=== PATIENT | male | born 1975 | race Caucasian/White ===

== ENCOUNTER 2017-01-24 21:05 | Emergency (ER) | payer MEDICAID ==
[~2017-01-24] VITALS: Ht 180.3 cm; Wt 83.9 kg
[~2017-01-24 21:05] MED LIST: AUGMENTIN 875-1 EACH PO; CHLORDIAZEPOXID25 MG PO; ESCITALOPRAM10 M1 PO; ETODOLAC400 MG PO; FLEXERIL10 MG PO; KEFLEX500 M1 PO; LORTAB 5/500 501 TAB PO; LORTAB 500 MG-71 TAB PO; NAPROSYN500 M1 PO; NOMEDS *; NOMEDS XX; ORUDIS75 MG PO; PHENERGAN 25MG.25 M1 PO; TAMIFLU 75MG CA75 MG PO; ZANTAC 150150 MG PO
[2017-01-24] MEDS ORDERED: KEFLEX 500MG.500 MG PO (21:57)
--- NOTE | 2017-01-24 22:02 | Emergency Room Report ---
History of Present Illness Time Seen by [id number] Presenting Problem in Triage Pt arrived:Walked Presenting Problem:PT STATES SOMETHING FLEW IN HIS EYE AT WORK A FEW DAYS AND WOKE UP TODAY WITH IT SWOLLEN AND RED. 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 N Clinical Suspician of Infection? N Mental Status: 1 - Regular (Normal Baseline) Sepsis Risk:Possible Sepsis Risk Have you (or family members/close friends) recently traveled outside the [place]? N If Yes, where/when: Have you had exposure to infectious disease within the past month? N TB? Other? Specify: Source patient, RN notes reviewed, family, old records Exam Limitations no limitations Comment fb in lt eye last week and now with drainage and reddness with no gross photophobia Cardiac Chest Pain Chest pain indicative of cardiac No Timing/Duration this evening Severity moderate ALLERGIES Coded Allergies: tetanus toxoid, adsorbed (S-ANAPHYLAXIS 01/26/16) Home Medications Reported Medications No Home Medications (NO HOME MEDICATIONS) 1 EACH XX ONCE History Medical History General CAD? No Angina: No CT: No Hypertension? No Hyperlipidemia? No CHF? No DVT? No PE? No COPD? No Asthma? Yes Anemia? No GERD? No Gastric ulcers? No GI Bleed? No Hernia? No Thyroid Problems? No Hypothyroidism? No CVA? No Seizures? No Diabetes? No Renal Insuffiency? No End Stage Renal Disease? No UTI? No Stones? No BPH? No GB Disease: No Nephritic Syndrome? No Asplenia? No Hepatitis? No Sickle Cell Disease? No Arthritis? No Migraines? No Cataracts? No Glaucoma? No MRSA? No HIV? No TB? No Anxiety? No Depression? No Cancer? No Immunization Hx DT/Tetanus REFUSES Flu [id number] Pneumonia NEVER Surgical Hx Previous Surgery?Y ORAL SURGERY Family History Family Hx Diabetes Yes CAD Yes Hypertension Yes Hyperlipidemia No Cancer No TB No Social History Smoking Hx Smoker: Current Every Day Smoker Tobacco: Yes Type Cigarettes Packs/day < 1 Pack Are you/the child exposed to second-hand smoke: Yes Alcohol Alcohol: No Drugs none Review of Systems All Other Systems Reviewed and Negative Constitutional denies fever Eyes see HPI, blurred vision, foreign body sensation, denies photophobia, denies contact lenses, denies glasses ENT denies: ear pain, epistaxis, throat pain. Respiratory denies cough, denies shortness of breath, denies wheezing Cardiovascular denies chest pain, denies syncope Gastrointestinal denies abdominal pain, denies diarrhea, denies vomiting Genitourinary denies: dysuria, frequency, hesitancy, hematuria. Musculoskeletal denies back pain, denies joint pain, denies joint swelling, denies neck pain Skin denies rash Psychiatric/Neurological denies headache, denies seizure Physical Exam Vital Signs Vital Signs Date Time Temp Pulse Resp B/P Pulse O2 O2 Flow FiO2 Ox Delivery Rate 01/24 2110 98.2 108 20 142/87 93 - WBC >12,000 or <4,000 or 10% bands? 2 or more SIRS Criteria Met? B/P:142/87 MAP:105 Creatinine >2.0? UA output<0.5ml/kg/hr for 2 hrs? Platelet count >100,000? Lactate >2.0mmol/1? INR >1.2 or PTT > than 60 sec? Evidence of Organ Dysfunction? Provider documented clinical suspician of infection? N Sepsis Criteria Count: 2 Sepsis Risk: Possible Sepsis Risk General Appearance no apparent distress Eye Exam - bilateral eye PERRL, bilateral eye EOMI Ear, Nose, Throat normal ENT inspection Neck supple Respiratory Status No: respiratory distress. 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 No Results/Orders Current Medication Orders Sig/Vi Start time Last Medication Dose Route Stop Time Status Admin Miscellaneous 0 .STK-MED ONE 01/24 2150 DC XX Procedures Eye Procedure Eye Procedure Risks/benefits discussed with pt/guardian? Yes Tetracaine Drops Administered left eye Fluorescein Stick(s) Used left eye Slit lamp exam No Antibiotic Ointment/Drps Admin left eye Departure Departure Time of Disposition 2154 Disposition DC Home or Self Care(routine) Clinical Impression Primary Impression: Conjunctivitis Qualifiers: Conjunctivitis type: acute Acute conjunctivitis type: bacterial Laterality: left Qualified Code: H10.32 - Unspecified acute conjunctivitis, left eye Condition STABLE Referrals [facility] Patient Instructions DI for Conjunctivitis Additional Instructions use meds and see dr sung in am Discharge Counseling Counseled pt/family regarding diagnosis, follow up needs Prescriptions Current Visit Scripts CEPHALEXIN (Keflex 500MG Capsule) 500 MG PO Q8H #21 CAP ED Critical Care Critical Care No at 2202
--- NOTE | 2017-01-24 22:02 | Emergency Room Report ---
History of Present Illness Time Seen by [id number] Presenting Problem in Triage Pt arrived:Walked Presenting Problem:PT STATES SOMETHING FLEW IN HIS EYE AT WORK A FEW DAYS AND WOKE UP TODAY WITH IT SWOLLEN AND RED. 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 N Clinical Suspician of Infection? N Mental Status: 1 - Regular (Normal Baseline) Sepsis Risk:Possible Sepsis Risk Have you (or family members/close friends) recently traveled outside the [place]? N If Yes, where/when: Have you had exposure to infectious disease within the past month? N TB? Other? Specify: Source patient, RN notes reviewed, family, old records Exam Limitations no limitations Comment fb in lt eye last week and now with drainage and reddness with no gross photophobia Cardiac Chest Pain Chest pain indicative of cardiac No Timing/Duration this evening Severity moderate ALLERGIES Coded Allergies: tetanus toxoid, adsorbed (S-ANAPHYLAXIS 01/26/16) Home Medications Reported Medications No Home Medications (NO HOME MEDICATIONS) 1 EACH XX ONCE History Medical History General CAD? No Angina: No [place]: No Hypertension? No Hyperlipidemia? No CHF? No DVT? No PE? No COPD? No Asthma? Yes Anemia? No GERD? No Gastric ulcers? No GI Bleed? No Hernia? No Thyroid Problems? No Hypothyroidism? No CVA? No Seizures? No Diabetes? No Renal Insuffiency? No End Stage Renal Disease? No UTI? No Stones? No BPH? No GB Disease: No Nephritic Syndrome? No Asplenia? No Hepatitis? No Sickle Cell Disease? No Arthritis? No Migraines? No Cataracts? No Glaucoma? No MRSA? No HIV? No TB? No Anxiety? No Depression? No Cancer? No Immunization Hx DT/Tetanus REFUSES Flu [id number] Pneumonia NEVER Surgical Hx Previous Surgery?Y ORAL SURGERY Family History Family Hx Diabetes Yes CAD Yes Hypertension Yes Hyperlipidemia No Cancer No TB No Social History Smoking Hx Smoker: Current Every Day Smoker Tobacco: Yes Type Cigarettes Packs/day < 1 Pack Are you/the child exposed to second-hand smoke: Yes Alcohol Alcohol: No Drugs none Review of Systems All Other Systems Reviewed and Negative Constitutional denies fever Eyes see HPI, blurred vision, foreign body sensation, denies photophobia, denies contact lenses, denies glasses ENT denies: ear pain, epistaxis, throat pain. Respiratory denies cough, denies shortness of breath, denies wheezing Cardiovascular denies chest pain, denies syncope Gastrointestinal denies abdominal pain, denies diarrhea, denies vomiting Genitourinary denies: dysuria, frequency, hesitancy, hematuria. Musculoskeletal denies back pain, denies joint pain, denies joint swelling, denies neck pain Skin denies rash Psychiatric/Neurological denies headache, denies seizure Physical Exam Vital Signs Vital Signs Date Time Temp Pulse Resp B/P Pulse O2 O2 Flow FiO2 Ox Delivery Rate 01/24 2110 98.2 108 20 142/87 93 - WBC >12,000 or <4,000 or 10% bands? 2 or more SIRS Criteria Met? B/P:142/87 MAP:105 Creatinine >2.0? UA output<0.5ml/kg/hr for 2 hrs? Platelet count >100,000? Lactate >2.0mmol/1? INR >1.2 or PTT > than 60 sec? Evidence of Organ Dysfunction? Provider documented clinical suspician of infection? N Sepsis Criteria Count: 2 Sepsis Risk: Possible Sepsis Risk General Appearance no apparent distress Eye Exam - bilateral eye PERRL, bilateral eye EOMI Ear, Nose, Throat normal ENT inspection Neck supple Respiratory Status No: respiratory distress. 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 No Results/Orders Current Medication Orders Sig/Vi Start time Last Medication Dose Route Stop Time Status Admin Miscellaneous 0 .STK-MED ONE 01/24 2150 DC XX Procedures Eye Procedure Eye Procedure Risks/benefits discussed with pt/guardian? Yes Tetracaine Drops Administered left eye Fluorescein Stick(s) Used left eye Slit lamp exam No Antibiotic Ointment/Drps Admin left eye Departure Departure Time of Disposition 2154 Disposition DC Home or Self Care(routine) Clinical Impression Primary Impression: Conjunctivitis Qualifiers: Conjunctivitis type: acute Acute conjunctivitis type: bacterial Laterality: left Qualified Code: H10.32 - Unspecified acute conjunctivitis, left eye Condition STABLE Referrals [facility] Patient Instructions DI for Conjunctivitis Additional Instructions use meds and see dr sung in am Discharge Counseling Counseled pt/family regarding diagnosis, follow up needs Prescriptions Current Visit Scripts CEPHALEXIN (Keflex 500MG Capsule) 500 MG PO Q8H #21 CAP ED Critical Care Critical Care No at 2202
[2017-01-24 22:11] VITALS: BP 142/87
--- OUTSIDE RECORDS SUMMARY | 2017-01-24 22:16 | External Medical Summary Rpt ---
Author Author , RYAN DAVIS Address Unknown Phone [email or web address] Care Team Providers Care Circuits Engineer Name Role Phone [employer] Unavailable Unavailable INC, [employer] Unavailable Unavailable INC, [employer] BEINEKE LATASHA, BEINEKE Unavailable Unavailable LATASHA JEFF GABBY, Unavailable Unavailable JEFF GABBY JEFF GABBY, Unavailable Unavailable JEFF GABBY [id number], Unavailable Unavailable [id number] KAR PRESLEY, Unavailable Unavailable [facility] Unavailable Unavailable [facility] WESTLEY, VIRGINIE Unavailable Unavailable [facility] [facility] Unavailable Unavailable INC, [facility], Unavailable Unavailable [facility] HOSTA JERMAINE, HOSTA JERMAINE Unavailable Unavailable [facility] Fifi Dumont MD, Unavailable Unavailable Fifi LEE JR DWI, ROSA Unavailable Unavailable JR DWI [facility] Unavailable Unavailable SERVICES, [facility], Unavailable Unavailable PLL[facility], [facility] PETTEY JAM, PETTEY Unavailable Unavailable JAM PETTEY JAM, PETTEY Unavailable Unavailable [facility] Unavailable Unavailable OF NOT, [facility] RENUSCH AILEEN, RENUSCH Unavailable Unavailable AILEEN DUONG THO, Unavailable Unavailable DUONG THO FLORINDA NEDRA, FLORINDA Unavailable Unavailable NEDRA SCHACK BURTON, SCHACK Unavailable Unavailable BURTON SOTINGEARUBY LATASHA, Unavailable Unavailable SOTINGEARUBY [facility] Unavailable Unavailable WOMEN'S STUDIES LECTURER ST, [facility] WOMEN'S STUDIES LECTURER ST [facility] Unavailable Unavailable [facility], [facility] ANDREW PRESLEY, ANDREW Unavailable Unavailable SAKINA ROULA III NEDRA, Unavailable Unavailable WEHRMAN III NEDRA MIRANDA, JANAE MIRANDA Unavailable Unavailable JANAE COLÓN Unavailable Unavailable Purpose Continuity of Care Document - 04-29-2009 through 2016 Problems Code Diagnosis DOS Provider Status [id number] CHONDROMALA 01-28-2016 [facility] EMILY [facility] [place] GROUP RIGHT KNEE [id number] PAIN IN 01-28-2016 [facility] RIGHT KNEE PHYSICIANS GROUP [id number] SPRAIN 01-26-2016 ADVANCED UNSPECIFIED TECHNOLOGIE SITE RT S INC KNEE INITIAL ENCNTR K027 DENTAL ROOT 10-27-2015 [facility], [facility] K029 DENTAL 10-27-2015 [facility] UNSPECIFIED INC Z720 TOBACCO USE 10-27-2015 [facility] INC 5206 DISTURBANCE 02-11-2015 [facility] S IN TOOTH [facility] ERUPTION INC 76544 LOSS OF 02-11-2015 [facility] TEETH DUE PHYSICIANS, TO TRAUMA [facility] 15849 OPEN WOUND 02-11-2015 NEO GUM WITHOUT PHYSICIANS, MENTION PLL COMPLICATIO N 920 CONTUSION 02-11-2015 [facility] SCALP AND INC NECK EXCEPT EYE 37904 INJURY OF 02-11-2015 NEO FACE AND PHYSICIANS, NECK OTHER PLLC AND UNSPECIFIED 7177 CHONDROMALA 12-05-2014 ST [facility] WOMEN'S STUDIES LECT[facility]ER [facility] [address]151 EFFUSION OF 12-05-2014 ST LOWER LEG [facility] WOMEN'S STUDIES [facility] [facility] [address] PAIN IN 12-05-2014 [facility] JOINT, ASSOCIATES LOWER LEG OF [facility] 9597 INJURY 12-05-2014 ST OTHER&UNSPE [facility]TE CIFIED KNEE MED CTR WOMEN'S STUDIES LECTURER LEG ST ANKLE&FOOT 9599 INJURY 12-05-2014 RAD[facility]Y OTHER AND ASSOCIATES UNSPECIFIED OF [facility] UNSPECIFIED SITE 88939 PAIN IN 11-24-2014 [place] [facility] ANKLE AND IM[facility]ING [facility] FOOT 87026 SWELLING OF 11-24-2014 [facility] 8449 SPRAIN&STRA 11-24-2014 NEO IN OF PHYSICIANS, UNSPECIFIED PLLC SITE OF KNEE&LEG 28019 UNSPECIFIED 08-25-2014 ADVANCED SITE OF TECHNOLOGIE ANKLE S INC SPRAIN AND STRAIN 276.8 276.8 01-29-2013 [facility] HYPOPOTASSE [facility] 305.00 305.00 01-29-2013 [facility] ALCOHOL [facility] C 305.1 305.1 01-29-2013 [facility] TOBACCO USE [facility] 5699 UNSPECIFIED 01-29-2013 JEFF DISORDER GABBY OF INTESTINE 574.20 574.20 01-29-2013 [facility] 35515 OTHER 01-29-2013 JEFF SPECIFIED GABBY DISORDERS OF BLADDER 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 LUTS 2768 HYPOPOTASSE 01-28-2013 JANAE MIRANDA KANDICE 5758 OTHER 01-28-2013 JANAE MIRANDA SPECIFIED DISORDER OF GALLBLADDER 43891 UNSPECIFIED 03-29-2012 [facility] PART OF [facility] CLOSED INC FRACTURE OF CLAVICLE 23516 CLOSED 03-29-2012 [facility] F[facility]URE OF MEDICAL SHAFT OF IMAGING ASS CLAVICLE V674 TREATMENT 03-29-2012 [facility] FRACTURE IMAGING ASS FOLLOW-UP EXAMINATION V5843 AFTERCARE 02-24-2012 [facility] FOLLOWING [facility] SURGERY INC INJURY AND TRAUMA 40926 SEROMA 02-16-2012 RUFUS HORTENSIA COMPLICATIN G A PROCEDURE NEC V672 CHEMOTHERAP 02-16-2012 [place] Y FOLLOW-UP MEDICAL IMAGING ASS EXAMINATION V5419 AFTERCARE 02-09-2012 [facility] TRAUMATIC IMAGING ASS FRACTURE OTHER BONE V5409 OTH 01-25-2012 [place] AFTERCARE MEDICAL INVOLVING IMAGING ASS INTERNAL FIXATION DEVICE 7933 NONSPECIFIC 01-14-2012 [place] ABN FINDNG MEDICAL RAD&OTH IMAGING ASS EXAM BILARY TRCT 8054 CLOS FX 01-14-2012 [place] LUMB [facility]ICAL VERTEBRA [facility] W/O MENTION SP CORD INJURY 56045 CLOSED 01-14-2012 [place] FRACTURE OF MEDICAL THREE RIBS [facility] 69535 OTHER 12-19-2011 [facility] PAIN SERVICES 49875 VOMITING 12-19-2011 [facility] ALONE [facility]ERG[facility] SERVICES 76173 CLOSED 12-19-2011 [facility] FRACTURE OF EMERGENCY RIB, SERVICES UNSPECIFIED 36861 CHEST PAIN 12-14-2011 RAD[facility]OLOGY UNSPECIFIED [facility] 80662 CLOSED 12-14-2011 EMERGENCY FRACTURE OF CARE PHYS ONE RIB [facility] 9110 TRUNK 12-14-2011 EMERGENCY ABRASION/FR CARE PHYS ICTION BURN [facility] WITHOUT MENTION INF 9160 HIP THI 12-14-2011 EMERGENCY LEG&ANK CARE PHYS ABRASION/FR [facility] ICION BURN W/O INF 64649 PAIN IN 12-13-2011 [place] [facility] PELVIC IMAGING ASS REGION AND THIGH 88822 DISPLCMT 12-13-2011 [facility] LUMBAR [facility]ICAL INTERVERT [facility] DISC W/O MYELOPATHY 7231 CERVICALGIA 12-13-2011 [facility] 7840 HEADACHE 12-13-2011 [facility] 18824 HEAD 12-13-2011 [place] INJURY, MEDICAL UNSPECIFIED IMAGING ASS 62788 CLOSED 01-17-2011 ST FRACTURE [facility] METACARPAL PHYSICIANS BONE SITE UNSPECIFIED Allergies, Adverse Reactions, Alerts Type Drug Allergy Adverse Reaction to Substance Substance Reaction Severity Tetanus Toxoid PARALYSIS Severe Medications Na ND Rx Da Fi Fi Am Da Di Ph RX Ph St me C No te ll ll ou ys ag ar # ys at rm s nt no ma ic us Or Da si cy ia de te s n re d IS 00 08 0 No OV 27 -2 UE 01 0- Lo -3 31 20 ng 70 65 13 er 2 76 Ac % ti IN ve FU S GABBY TT LE RA 63 08 0 No D- 80 -2 SA 70 0- Lo LI 10 20 ng NE 07 13 er 5A FL Ac US ti H ve 10 ML SY RI NG E RA 63 08 0 No D- 80 -2 SA 70 0- Lo LI 10 20 ng NE 07 13 er 5A FL Ac US ti H ve 10 ML SY RI NG E Sa 63 08 1 No li 80 -1 ne 70 9- Lo 10 20 ng Fl 07 13 er us 5 h Ac 10 ti ML ve Sy ri ng e Mo 00 08 0 No rp 40 -1 hi 91 9- Lo ne 25 20 ng 83 13 er 4M 0 G/ Ac Ml ti ve Sy ri ng e SO 00 08 0 No DI 40 -1 UM 97 9- Lo 98 20 ng CH 30 13 er LO 9 RI Ac DE ti ve 0. 9% SO JUSTYNA TI ON Sa 63 08 1 No li 80 -1 ne 70 9- Lo 10 20 ng Fl 07 13 er us 5 h Ac 10 ti ML ve Sy ri ng e ON 00 08 0 No DA 64 -1 NS 16 9- Lo ET 08 20 ng RO 02 13 er N 5 HC Ac L ti 4 ve MG /2 ML AL Mo 00 08 0 No rp 40 -1 hi 91 9- Lo ne 25 20 ng 83 13 er 4M 0 G/ Ac Ml ti ve Sy ri ng e KL 00 08 0 No OR 24 -1 -C 50 9- Lo ON 05 20 ng 80 13 er M2 1 0 Ac TA ti BL ve ET GA [address] 27 -1 RO 00 9- Lo GR 44 20 ng AF 53 13 er IN 5 Ac 66 ti -1 ve 0 SO JUSTYNA TI ON 00 08 08 0 15 3 CV 58 SC Ac 40 -0 -0 .0 S 04 ARENAS ti 60 8- 8- 00 PH 03 CK ve 36 20 20 AR 00 11 11 MA BR 5 CY IA # N 05 43 7 00 08 08 0 30 7 CV 58 WE Ac 40 -0 -0 .0 S 00 HR ti 60 4- 4- 00 PH 60 MA ve 35 20 20 AR N 70 11 11 MA II 5 CY I # WI LL 05 IA 43 M 7 E Vital Signs 01-29-2013 01:15 Name Value Interpretat Reference Comment ion Range BP 82 mm[Hg] Diastolic BP Systolic 135 mm[Hg] Heart 71 /min Rate/Pulse O2% 98 % Respiratory 16 /min Rate 01-28-2013 22:42 Name Value Interpretat Reference Comment ion Range BP 77 mm[Hg] Diastolic BP Systolic 131 mm[Hg] Heart 102 /min Rate/Pulse O2% 97 % Respiratory 18 /min Rate Results Labs Lab Lab Date Result Refere Interp Status Commen Order Detail nces retati t Range on COMPREHENSIVE METABOLIC PANEL (01-28-2013 21:45) Glucose 102 74-106 complet 013 mg/dL ed Bld-mCn 21:45 c BUN 7 mg/dL 7-18 complet Bld-mCn 013 ed c 21:45 Creat 1.1 0.8-1.3 complet SerPl-m 013 mg/dL ed Cnc 21:45 ESTIMAT 106 50-200 complet ED 013 ML/MIN ed CREATIN 21:45 INE CLEARAN CE GFR 75 Greater complet (ESTIMA 013 ML/MIN than ed RENA) 21:45 60 Sodium 142 136-145 complet SerPl-s 013 mmoL/L ed Cnc 21:45 Potassi 2.5 3.5-5.1 Low complet um 013 mmoL/L alert ed SerPl-s 21:45 Cnc Chlorid 99 98-107 complet e 013 mmoL/L ed SerPl-s 21:45 Cnc CO2 34 21.0-32 complet SerPl-s 013 mmoL/L .0 ed Cnc 21:45 Calcium 08-19-2 7.8 8.5-10. complet 013 mg/dL 1 ed SerPl-m 21:45 Cnc Prot 01-28-2 6.7 6.4-8.2 complet SerPl-m 013 gm/dL ed Cnc 21:45 Albumin 01-28-2 3.3 3.4-5.0 complet 013 gm/dL ed SerPl-m 21:45 Cnc Globuli 01-28-2 3.4 1.3-3.2 complet n 013 gm/dL ed Ser-mCn 21:45 c Albumin 1.0 UNK 1.1-1.8 complet /Glob 013 ed SerPl-m 21:45 Rto Bilirub 0.2 0.2-1.0 complet 013 mg/dL ed SerPl-m 21:45 Cnc AST 01-28- 24 U/L 15-37 complet SerPl-c 013 ed Cnc 21:45 ALT 01-28- 28 U/L 30-65 complet SerPl-c 013 ed Cnc 21:45 ALP 01-28- 104 U/L 50-136 complet SerPl-c 013 ed Cnc 21:45 LIPASE (01-28-2013 21:45) LIPASE 122 U/L 73-393 complet 013 ed 21:45 CBC with AUTO DIFF (01-28-2013 21:45) WBC # 01-28-2 9.1 4.8-10. complet Bld 013 K/MM3 8 ed Auto 21:45 RBC # 01-28-2 4.30 4.6-6.2 complet Bld 013 M/mm3 ed Auto 21:45 Hgb 01-28-2 13.9 14.1-18 complet Bld-mCn 013 g/dL .0 ed c 21:45 Hct Fr 40.0 % 42.0-52 complet Bld 013 .0 ed 21:45 MCV RBC 01-28- 93.1 fl 82.2-97 complet 013 .8 ed 21:45 MCH RBC 32.4 pg 27-31.2 complet Qn 013 ed Auto 21:45 MEAN 34.8 31.8-35 complet CORPUSC 013 g/dl .4 ed ULAR 21:45 HGB CONC RDW RBC 08-19-2 14.2 % 11.5-17 complet Auto 013 .5 ed 21:45 Platele 08-19-2 266 142-424 complet t Bld 013 K/mm3 ed Ql 21:45 Manual MEAN 19-2 6.9 fl 7.4-10. complet PLATELE 013 4 ed T 21:45 VOLUME Granulo -19-2 39.1 % 37.0-80 complet cytes 013 .0 ed Fr Bld 21:45 Auto LYMPH % -19-2 46.6 % 10-50 complet 013 ed 21:45 Monocyt 08-19-2 4.6 % 1.7-9.3 complet es Fr 013 ed Bld 21:45 Auto Eosinop -19-2 9.3 % 0.1-12. complet hil Fr 013 0 ed Bld 21:45 Auto Basophi 19-2 0.5 % 0.1-2.0 complet ls Fr 013 ed Bld 21:45 Auto Granulo -19-2 3.5 1.3-8.0 complet cytes # 013 K/mm3 ed Bld 21:45 Auto Lymphoc -19-2 4.2 0.7-4.5 complet ytes Fr 013 K/mm3 ed Bld 21:45 Auto Monocyt 08-19-2 0.4 0.1-1.0 complet es # 013 K/mm3 ed Bld 21:45 Auto Eosinop -19-2 0.8 0.0-0.4 complet hil # 013 K/mm3 ed Bld 21:45 Auto Basophi 08-19-2 0.0 0-0.2 complet ls # 013 K/MM3 ed Bld 21:45 Auto Procedures Procedure DOS Code Location Performer Comment KNEE L1830 [facility]ED HOSTA JERMAINE ORTHOSIS 6 TECHNOLOG IMMOBLIZE IES INC R CANVAS LONGTUDNL PREFAB THERAPEUT 91979 [facility] IC 6 [facility] PROPHYLAC INC INC TIC/DX INJECTION SUBQ/IM INJECTION J2405 [facility] 6 [facility] ONDANSETR INC INC ON HCL PER 1 MG UNCLASSIF J3490 [facility] IED DRUGS 6 [facility] INC [place] [address] JT LOWER 5 [facility]TE [facility] EXTREM MED CTR MED CTR W/O WOMEN'S STUDIES LECTURER ST WOMEN'S STUDIES LECTURER ST CONTRAST MATRL RADIOLOGI 58509 YUKO JEFF C 5 MEDICAL GABBY EXAMINATI IMAGING ON KNEE 3 ASS VIEWS RADEX 74883 YUKO JEFF ANKLE 5 MEDICAL GABBY COMPLETE IMAGING MINIMUM 3 ASS VIEWS RADEX 12604 YUKO BEINEKE ANKLE 5 MEDICAL LATASHA COMPLETE IMAGING MINIMUM 3 ASS VIEWS CRTCHS E0114 ADVANCED ADVANCED UNDARM 5 TECHNOLOG TECHNOLOG OT THAN IES INC IES INC WOOD PAIR PAD TIP&[place] [address] JEFF JEFF ABDOMEN & 3 GABBY GAB[place] [address] JANAE MIRANDA ABDOMINAL 3 REAL TIME W/IMAGE LIMITED ECHO 06975 JANAE MIRANDA TRANSTHOR 3 C R-T 2D W/WO M-MODE REC F-UP/LMTD US CHEST 31999 JANAE MIRANDA REAL TIME 3 W/IMAGE DOCUMENTA TION RADEX 51122 A[facility] CLAVICLE 2 [facility] COMPLETE INC INC RADEX 71826 [facility] CLAVICLE 2 [facility] COMPLETE INC INC RADEX 66954 YUKO JEFF CLAVICLE 2 MEDICAL GABBY COMPLETE IMAGING ASS SMR PRIM 85711 [facility] SRC 2 [facility] GRAM/GIEM INC INC SA STAIN BCT FUNGI/MARI L I&D 57787 PETTEY PETTEY HEMATOMA 2 JAM JAM SEROMA/FL UID COLLECTIO N CUL BACT 10680 [facility] XCPT 2 [facility] URINE INC INC BLOOD/STO OL AEROBIC ISOL RADEX 58044 A[facility] CLAVICLE 2 [facility] COMPLETE INC INC RADEX 97341 A[facility] CLAVICLE 2 [place] [address] [facility] INFUSION 2 [facility] THERAPY/P INC INC ROPHYLAXI S /DX 1ST TO 1 HR FLUOROSCO 44843 YUKO AGUILAR PY SPX UP 2 MEDICAL GABBY TO 1 IMAGING HOUR ASS PHYS/QHP TIME FLUOROSCO 73475 ANA CRISTINA DE LA PAZ PY SPX >1 2 [facility] HOUR INC INC PHYS/[place] [address] PETTEMinh PETTEY CLAVICULA 2 JAM JAM R FRACTURE INTERNAL FIXATION RADIOLOGI 61829 YUKO AGUILAR C 2 MEDICAL GABBY EXAMINATI IMAGING ON CHEST ASS SINGLE VIEW FRONTAL THERAPEUT 98343 ANA CRISTINA ANA CRISTINA IC 2 [facility] INJECTION [place] [address] ANA CRISTINACECY DE LA PAZ INFUSION 2 [facility] THERAPY INC INC PROPHYLAX IS/DX EA HOUR ANESTHESI 44256 COMMUNITY ANDREW A 2 ANESTH SAKINA CLAVICLE OF THE AND BLUE SCAPULA NOS ANCHOR/SC C1713 ANA CRISTINA ANA CRISTINA REW 2 [facility] OPPOSING INC INC BN-TO-BN/ SOFT TISSUE-TO -BN RADEX 27199 ANA CRISTINA DE LA PAZ CLAVICLE 2 [facility] [place] [address] YUKO AGUILAR ABDOMEN & 2 MEDICAL GABBY PELVIS IMAGING W/O ASS CONTRAST MATERIAL ECG 45305 ANA CRISTINA DE LA PAZ ROUTINE 2 [facility] ECG INC INC W/LEAST 12 LDS TRCG ONLY W/O I&R ECG 33980 ROSA LEE JR ROUTINE 2 DWI DWI ECG W/LEAST 12 LDS I&R ONLY BLOOD 35891 ANA [facility]RISTINA DE [facility] PA[facility] COUNT 2 [facility] COMPLETE INC INC AUTO&AUTO DIFRNTL WBC BASIC 28071 ANA [facility] METABOLIC 2 [facility] PANEL INC INC CALCIUM TOTAL SHOULDER L3670 [facility]ANCED ADVANCED ORTHOSIS 2 TECHNOLOG TECHNOLOG ACROMIO/C IES INC IES INC LAVICULAR PREFAB RADEX 61266 RADIOLOGY DARDINGER CLAVICLE 2 SAKINA COMPLETE [facility]OCIATE S [facility] RADIOLOGI 76824 RADIOLOGY DARDINGER C EXAM 2 SAKINA CHEST 2 ASSOCIATE VIEWS S OF [facility] FRONTAL&L ATERAL CT LUMBAR 36285 YUKO AGUILAR SPINE 2 MEDICAL GABBY W/O IMAGING CONTRAST ASS MATERIAL RADIOLOGI 26748 YUKO AGUILAR C 2 MEDICAL GABBY EXAMINATI IMAGING ON PELVIS ASS 1/2 VIEWS RADEX 96163 YKUO HUNTLEY SHOULDER 2 MEDICAL MEDICAL COMPLETE IMAGING IMAGING MINIMUM 2 ASS ASS VIEWS RADEX 47374 YUKO AGUILAR RIBS 2 MEDICAL GABBY UNILATERA IMAGING [place] [address] [place] [address] [facility] AGUILAR CERVICAL 2 MEDICAL GABBY SPINE W/[place] [address] YUKO AGUILAR HEAD/BRAI 2 MEDICAL GABBY N W/O IMAGING CONTRAST ASS MATERIAL CLTX 13566 JOSH CELESTE METACARPA 1 EMERGENCY III NEDRA L FX W/O SERVICES MANIPULAT ION EACH BONE RADEX 47564 [facility] [place] AGUILAR HAND 1 MEDICAL GABBY MINIMUM 3 IMAGING VIEWS ASS Encounters Encounter Start End Date Code Location Performer Type Date OFFICE 14061 [facility] STACEYMinh OUTFIOR 6 6 PHYSICIAN HORTENSIA Fischer NEW 30 S GROUP MINUTES EMERGENCY 62699 NEO LOVELACE 6 6 PHYSICIAN AILEEN ANTHONY S, [facility] T VISIT MODERATE SEVERITY HOSPITAL ANA CRISTINA - 6 6 [facility] 71627 ANA CRISTINA 6 6 [facility] T VISIT MODERATE SEVERITY EMERGENCY 51073 NEO MACKAY 6 6 PHYSICIAN Faye ANTHONY S, [facility] T VISIT HIGH/URGE NT SEVERITY EMERGENCY 04777 NEO MACKAY 5 5 PHYSICIAN Faye ANTHONY S, [facility] T VISIT MODERATE SEVERITY EMERGENCY 33323 ANA CRISTINA 5 [address] [facility] T VISIT LOW/MODER SEVERITY HOSPITAL ANA CRISTINA - 5 5 [facility] OUTPATIEN INC [facility] - 5 5 [facility] OFF[facility] [address] [facility] OUTPATIEN 5 5 [facility] [place] T VISIT 15 PHYSICIAN MINUTES S EMERGENCY 58634 NEO RACHEL 5 5 PHYSICIAN WESTLEY DEPARTMEN S, [facility] T VISIT HIGH/URGE NT SEVERITY Emergency DENAE Dumont MD (ER) 3 21:56 3 01:30 [facility] EMERGENCY 14463 JANAE MIRANDA DEPT 3 3 VISIT HIGH SEVERITY& THREAT [facility] ANA CRISTINA - 2 2 [facility]IEN [facility] ANA CRISTINA [facility] 2 2 [facility] ANA CRISTINA [facility] 2 2 [facility]PATIEN [facility] ANA CRISTINA - 2 2 [facility] ANA CRISTINA - 2 2 [facility] ANA CRISTINA - 2 2 [facility] ANA CRISTINA - 2 2 [facility] OUTPATIEN [facility] OFFICE 68954 PETTEMinh PET[facility]Y [facility] 2 JAM JAM T NEW 30 MINUTES EMERGENCY 52445 JOSH NEELY DEPT 2 2 EMERGENCY NEDRA VISIT SERVICES HIGH SEVERITY& THREAT [facility] EMERGENCY 33178 EMERGENCY RICHARD 2 2 CARE N THO DEPARTMEN PHYS T VISIT [facility] HIGH/URGE NT SEVERITY OFFICE [address] [facility] OUTPATIEN 1 1 [facility] [place] T NEW 30 MINUTES PHYSICIAN HOSPITAL ANA CRISTINA - 1 1 [facility]PATIEN [facility] EMERGENCY 46433 ANA CRISTINA 1 1 [facility] T VISIT LOW/MODER SEVERITY EMERGENCY 81387 JOSH CELESTE 1 1 EMERGENCY III [facility] T VISIT HIGH/URGE NT [facility] ANA CRISTINA - 9 9 [facility]
--- OUTSIDE RECORDS SUMMARY | 2017-01-24 22:16 | External Medical Summary Rpt ---
Author Author , RYAN DAVIS Address Unknown Phone [email or web address] Care Team Providers Care Research Microbiologist Name Role Phone [employer] Unavailable Unavailable INC, [employer] Unavailable Unavailable INC, [employer] BEINEKE LATASHA, BEINEKE Unavailable Unavailable LAATSHA JEFF GABBY, Unavailable Unavailable JEFF GABBY JEFF GABBY, Unavailable Unavailable JEFF GABBY [id number], Unavailable Unavailable [id number] K[facility] PRES[facility], Unavailable Unavailable [facility] Unavailable Unavailable [facility] [place], VIRGINIE Unavailable Unavailable [place] [facility] Unavailable Unavailable INC, [facility], Unavailable Unavailable [facility] HOSTA JERMAINE, HOSTA JERMAINE Unavailable Unavailable [facility] Fifi Dumont MD, Unavailable Unavailable Fifi LEE JR DWI, ROSA Unavailable Unavailable JR DWI [facility] Unavailable Unavailable SERVICES, [facility] Unavailable [facility]available [facility], [facility] PETTEY JAM, PETTEY Unavailable Unavailable JAM PETTEY JAM, PETTEY Unavailable Unavailable [facility] Unavailable Unavailable OF NOT, [facility] RENUSCH AILEEN, RENUSCH Unavailable Unavailable AILEEN DUONG THO, Unavailable Unavailable DUONG THO FLORINDA NEDRA, FLORINDA Unavailable Unavailable NEDRA SCHACK BURTON, SCHACK Unavailable Unavailable BURTON SOTINGEARUBY LATASHA, Unavailable Unavailable SOTINGEARUBY [facility] Unavailable Unavailable PULL OVER MACHINE OPERATOR ST, [facility] PULL OVER MACHINE OPERATOR ST [facility] Unavailable Unavailable [facility]IC[facility], [facility] ANDREW PRESLEY, ANDREW Unavailable Unavailable SAKINA ROULA III NEDRA, Unavailable Unavailable WEHRMAN III NEDRA MIRANDA, JANAE MIRANDA Unavailable Unavailable JANAE COLÓN Unavailable Unavailable Purpose Continuity of Care Document - 04-29-2009 through 2016 Problems Code Diagnosis DOS Provider Status [id number] CHONDROMALA 01-28-2016 [facility] RIGHT KNEE [id number] PAIN IN 01-28-2016 [facility] RIGHT [facility] PH[facility]ICIANS GROUP [id number] SPRAIN 01-26-2016 [facility] UNSPECIFIED TECHNOLOGIE SITE RT S INC KNEE INITIAL ENCNTR K027 DENTAL ROOT 10-27-2015 [facility], [facility] K029 DENTAL 10-27-2015 [facility] UNSPECIFIED INC Z720 TOBACCO USE 10-27-2015 [facility] INC 5206 DISTURBANCE 02-11-2015 [facility] S IN [facility]OTH [facility] ERUPTION INC 93584 LOSS OF 02-11-2015 [facility] TEETH DUE PHYSICIANS, TO TRAUMA [facility] 46373 OPEN WOUND 02-11-2015 NEO GUM WITHOUT PHYSICIANS, MENTION PLL COMPLICATIO N 920 CONTUSION 02-11-2015 [facility]ACE [facility] SCALP AND INC NECK EXCEPT EYE 67039 INJURY OF 02-11-2015 NEO FACE AND PHYSICIANS, NECK OTHER PLLC AND UNSPECIFIED 7177 CHONDROMALA 12-05-2014 ST [facility] PULL OVER MACHINE [place]ATOR [facility] [address]274 EFFUSION OF 12-05-2014 ST [facility] PULL OVER MACHINE OPERATOR [facility] [address]249 PAIN IN 12-05-2014 [facility], [facility]OC[facility]ATES [facility]OWER [facility] 9597 INJURY 12-05-2014 ST OTHER&UNSPE [facility]TE CIFIED KNEE MED CTR PULL OVER MACHINE OPERATOR LEG ST ANKLE&FOOT 9599 INJURY 12-05-2014 RAD[facility] OTHER AND ASSOCIATES UNSPECIFIED OF [facility] UNSPECIFIED SITE 01051 PAIN IN 11-24-2014 [place] [facility], [facility] ANKLE AND IM[facility]ING ASS FOOT 45645 SWELLING OF 11-24-2014 [facility] 8449 SPRAIN&STRA 11-24-2014 NEO IN OF PHYSICIANS, UNSPECIFIED PLLC SITE OF KNEE&LEG 70124 UNSPECIFIED 08-25-2014 [facility] SITE OF TECHNOLOGIE ANKLE S INC SPRAIN AND STRAIN 276.8 276.8 01-29-2013 [place] HYPOPOTASSE [facility] 305.00 305.00 01-29-2013 [place] ALCOHOL [facility] C 305.1 305.1 01-29-2013 [place] TOBACCO USE [facility] 5699 UNSPECIFIED 01-29-2013 JEFF DISORDER GABBY OF INTESTINE 574.20 574.20 01-29-2013 Ana Cristina [facility] 48533 OTHER 01-29-2013 JEFF SPECIFIED GABBY DISORDERS OF BLADDER 12417 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 LUTS 2768 HYPOPOTASSE 01-28-2013 JANAE MIRANDA KANDICE 5758 OTHER 01-28-2013 JANAE MIRANDA SPECIFIED DISORDER OF GALLBLADDER 78197 UNSPECIFIED 03-29-2012 [facility] PART OF [facility] CLOSED INC FRACTURE OF CLAVICLE 79003 CLOSED 03-29-2012 [place] FRACTURE OF MEDICAL SHAFT OF IMAGING ASS CLAVICLE V674 TREATMENT 03-29-2012 [place] HEALED [facility]ICAL FRACTURE IMAGING ASS FOLLOW-UP EXAMINATION V5843 AFTERCARE 02-24-2012 [facility] FOLLOWING [facility]ERY INC INJURY AND TRAUMA 45402 SEROMA 02-16-2012 RUFUS HORTENSIA COMPLICATIN G A PROCEDURE NEC V672 CHEMOTHERAP 02-16-2012 [place] Y FOLLOW-UP MEDICAL IMAGING ASS EXAMINATION V5419 AFTERCARE 02-09-2012 [place] HEALING MEDICAL TRAUMATIC IMAGING ASS FRACTURE OTHER BONE V5409 OTH 01-25-2012 [place] AFTERCARE MEDICAL INVOLVING IMAGING ASS INTERNAL FIXATION DEVICE 7933 NONSPECIFIC 01-14-2012 [place] ABN FINDNG MEDICAL RAD&OTH IMAGING ASS EXAM BILARY TRCT 8054 CLOS FX 01-14-2012 [place] LUMB MEDICAL VERTEBRA IMAGING ASS W/O MENTION SP CORD INJURY 04979 CLOSED 01-14-2012 [place] FRACTURE OF MEDICAL THREE RIBS [facility] 60123 OTHER 12-19-2011 [facility] 93368 VOMITING 12-19-2011 [facility] 34216 CLOSED 12-19-2011 [place] FRACTURE OF EMERGENCY RIB, SERVICES UNSPECIFIED 29782 CHEST PAIN 12-14-2011 [facility] UNSPECIFIED [facility] 60432 CLOSED 12-14-2011 EMERGENCY FRACTURE OF CARE PHYS ONE RIB [facility] 9110 TRUNK 12-14-2011 EMERGENCY ABRASION/FR CARE PHYS ICTION BURN [facility] WITHOUT MENTION INF 9160 HIP THI 12-14-2011 EMERGENCY LEG&ANK CARE PHYS ABRASION/FR [facility] ICION BURN W/O INF 85762 PAIN IN 12-13-2011 [place] [facility]INT MEDICAL PELVIC IMAGING ASS REGION AND THIGH 03844 DISPLCMT 12-13-2011 [place] LUMBAR MEDICAL INTERVERT IMAGING ASS DISC W/O MYELOPATHY 7231 CERVICALGIA 12-13-2011 [facility] 7840 HEADACHE 12-13-2011 [facility] 96564 HEAD 12-13-2011 [place] INJURY, MEDICAL UNSPECIFIED IMAGING ASS 36315 CLOSED 01-17-2011 ST FRACTURE BETTE METACARPAL PHYSICIANS [...] IES INC R CANVAS LONGTUDNL PREFAB THERAPEUT 23536 [facility] IC 6 [facility] PROPHYLAC INC INC TIC/DX INJECTION SUBQ/IM INJECTION J2405 [facility] 6 [facility] ONDANSETR INC INC ON HCL PER 1 MG UNCLASSIF J3490 [facility] IED DRUGS 6 [facility] INC INC MRI ANY [address] JT LOWER 5 BETTE [facility]TE EXTREM MED CTR MED CTR W/O PULL OVER MACHINE OPERATOR ST PULL OVER MACHINE OPERATOR ST CONTRAST MATRL RADIOLOGI 75487 YUKO JEFF C 5 MEDICAL GABBY EXAMINATI IMAGING ON KNEE 3 ASS VIEWS RADEX 96583 YUKO JEFF ANKLE 5 MEDICAL GABBY COMPLETE IMAGING MINIMUM 3 ASS VIEWS RADEX 20992 YUKO BEINEKE ANKLE 5 MEDICAL LATASHA COMPLETE IMAGING MINIMUM 3 ASS VIEWS CRTCHS E0114 [facility]VANCED ADVANCED UNDARM 5 TECHNOLOG TECHNOLOG OT THAN IES INC IES INC WOOD PAIR PAD TIP&[place] [address] JEFF JEFF ABDOMEN & 3 GABBY GABBY PEL[place] [address] JANAE MIRANDA ABDOMINAL 3 REAL TIME W/IMAGE LIMITED ECHO 68538 JANAE MIRANDA TRANSTHOR 3 C R-T 2D W/WO M-MODE REC F-UP/LMTD US CHEST 03134 JANAE MIRANDA REAL TIME 3 W/IMAGE DOCUMENTA TION RADEX 77412 [facility] CLAVICLE 2 [facility] COMPLETE INC INC RADEX 93861 [facility] CLAVICLE 2 [facility] COMPLETE INC INC RADEX 40535 YUKO JEFF CLAVICLE 2 MEDICAL GABBY COMPLETE IMAGING ASS SMR PRIM 31632 [facility] SRC 2 [facility] GRAM/GIEM INC INC SA STAIN BCT FUNGI/MARI L I&D 34002 PETTEY PETTEY HEMATOMA 2 JAM JAM SEROMA/FL UID COLLECTIO N CUL BACT 00072 [facility] XCPT 2 [facility] URINE INC INC BLOOD/STO OL AEROBIC ISOL RADEX 25658 [facility] CLAVICLE 2 [facility] COMPLETE INC INC RADEX 80793 A[facility] CLAVICLE 2 [place] [address] A[facility] INFUSION 2 [facility] THERAPY/P INC INC ROPHYLAXI S /DX 1ST TO 1 HR FLUOROSCO 86466 YUKO AGUILAR PY SPX UP 2 MEDICAL GABBY TO 1 IMAGING HOUR ASS PHYS/QHP TIME FLUOROSCO 51794 ANA [facility]RISTINA DE LA PAZ PY SPX >1 2 [facility] HOUR [place] [address] PETTEMinh PETTEY CLAVICULA 2 JAM JAM R FRACTURE INTERNAL FIXATION RADIOLOGI 23935 YUKO AGUILAR C 2 MEDICAL GABBY EXAMINATI IMAGING ON CHEST ASS SINGLE VIEW FRONTAL THERAPEUT 57084 ANA CRISTINA ANA CRISTINA IC 2 [facility] INJECTION [place] [address] ANA CRISTINACECY DE LA PAZ INFUSION 2 [facility] THERAPY INC INC PROPHYLAX IS/DX EA HOUR ANESTHESI 78438 COMMUNITY ANDREW A 2 ANESTH SAKINA CLAVICLE OF THE AND BLUE SCAPULA NOS ANCHOR/SC C1713 ANA CRISTINA ANA CRISTINA REW 2 [facility] OPPOSING INC INC BN-TO-BN/ SOFT TISSUE-TO -BN RADEX 65173 ANA CRISTINA DE LA PAZ CLAVICLE 2 [facility] [place] [address] YUKO AGUILAR ABDOMEN & 2 MEDICAL GABBY PELVIS IMAGING W/O ASS CONTRAST MATERIAL ECG 16746 ANA CRISTINA DE LA PAZ ROUTINE 2 [facility] ECG INC INC W/LEAST 12 LDS TRCG ONLY W/O I&R ECG 68495 ROSA LEE JR ROUTINE 2 DWI DWI ECG W/LEAST 12 LDS I&R ONLY BLOOD 54682 ANA [facility]INA DE [facility] PA[facility] COUNT 2 [facility] COMPLETE INC INC AUTO&AUTO DIFRNTL WBC BASIC 50249 ANA [facility]RISTINA DE [facility] METABOLIC 2 [facility] PANEL INC INC CALCIUM TOTAL SHOULDER L3670 [facility] OR[employer]OSIS 2 TECHNOLOG TECHNOLOG ACROMIO/C IES INC IES INC LAVICULAR PREFAB RADEX 07140 RADIOLOGY DARDINGER CLAVICLE 2 SAKINA COMPLETE [facility] RADIOLOGI 02089 RADIOLOGY DARDINGER C EXAM 2 SAKINA CHEST 2 ASSOCIATE VIEWS S OF [facility] FRONTAL&L ATERAL CT LUMBAR 34755 YUKO AGUILAR SPINE 2 MEDICAL GABBY W/O IMAGING CONTRAST ASS MATERIAL RADIOLOGI 30743 YUKO AGUILAR C 2 MEDICAL GABBY EXAMINATI IMAGING ON PELVIS ASS 1/2 VIEWS RADEX 39214 YUKO HUNTLEY SHOULDER 2 MEDICAL MEDICAL COMPLETE IMAGING IMAGING MINIMUM 2 ASS ASS VIEWS RADEX 55362 YUKO AGUILAR RIBS 2 MEDICAL GABBY UNILATERA IMAGING [place] [address] [place] [address] [facility] AGUILAR CERVICAL 2 MEDICAL GABBY SPINE W/[place] [address] YUKO AGUILAR HEAD/BRAI 2 MEDICAL GABBY N W/O IMAGING CONTRAST ASS MATERIAL CLTX 93296 JOSH CELESTE METACARPA 1 EMERGENCY III NEDRA L FX W/O SERVICES MANIPULAT ION EACH BONE RADEX 42571 [facility] AGUILAR HAND 1 MEDICAL GABBY MINIMUM 3 IMAGING VIEWS ASS Encounters Encounter Start End Date Code Location Performer Type Date OFFICE 81178 [facility] STACEYMinh OUTFIOR 6 6 PHYSICIAN HORTENSIA Fischer NEW 30 S GROUP MINUTES EMERGENCY 37199 NEO LOVELACE 6 6 PHYSICIAN AILEEN ANTHONY S, [facility] T VISIT MODERATE SEVERITY HOSPITAL ANA CRISTINA - 6 6 [facility] 66904 ANA CRISTINA 6 6 [facility] T VISIT MODERATE SEVERITY EMERGENCY 72573 NEO MACKAY 6 6 PHYSICIAN Faye ANTHONY S, [facility] T VISIT HIGH/URGE NT SEVERITY EMERGENCY 32663 NEO MACKAY 5 5 PHYSICIAN Faye ANTHONY S, [facility] T VISIT MODERATE SEVERITY EMERGENCY 87653 ANA CRISTINA 5 5 [facility] T VISIT LOW/MODER SEVERITY HOSPITAL ANA CRISTINA - 5 5 [facility] OUTPATIEN INC [facility] - [facility] [facility] OUTPATIEN 5 5 [facility] [place] T VISIT 15 PHYSICIAN MINUTES S EMERGENCY 24877 NEO RACHEL 5 5 PHYSICIAN [place] DEPARTMEN S, [facility] T VISIT HIGH/URGE NT SEVERITY Emergency DENAE Dumont MD (ER) 3 21:56 3 01:30 [facility] EMERGENCY 36344 JANAE MIRANDA DEPT 3 3 VISIT HIGH SEVERITY& THREAT [facility] ANA CRISTINA - 2 2 [facility] ANA CRISTINA - 2 2 [facility] ANA CRISTINA - 2 2 [facility] ANA CRISTINA - 2 2 [facility] ANA CRISTINA - 2 2 [facility] ANA CRISTINA - 2 2 [facility] ANA CRISTINA - 2 2 [facility] OUTPATI[facility] OFFICE 21025 PETTEMinh PETTEY [facility] 2 2 JAM JAM T NEW 30 MINUTES EMERGENCY 85246 JOSH NEELY DEPT 2 2 EMERGENCY NEDRA VISIT SERVICES HIGH SEVERITY& THREAT [facility] 21641 EMERGENCY RICHARD 2 2 CARE N THO DEPARTMEN PHYS T VISIT [facility] HIGH/URGE NT SEVERITY OFFICE [address] [facility] OUT[facility]EN 1 1 [facility] [place] T NEW 30 MINUTES PHYSICIAN HOSPITAL ANA CRISTINA - 1 1 [facility] EMERGENCY 94861 [facility] 1 [facility] VISIT LOW/MODER SEVERITY EMERGENCY 49977 JOSH CELESTE 1 1 [facility]ERGENCY III [facility] VISIT HIGH/URGE NT [facility] ANA CRISTINA - 9 9 [facility]PAT[facility]EN [facility] T
--- OUTSIDE RECORDS SUMMARY | 2017-01-24 22:17 | External Medical Summary Rpt ---
Author Author , RYAN Organization RYAN Address Unknown Phone [email or web address] Team Providers Care Principal Web Developer Name Role Phone [employer] Unavailable Unavailable INC, [employer] Unavailable Unavailable INC, [employer] BEINEKE LATASHA, BEINEKE Unavailable Unavailable LATASHA JEFF GABBY, Unavailable Unavailable JEFF GABBY JEFF GABBY, Unavailable Unavailable JEFF GABBY [id number], Unavailable Unavailable [id number] KAR SAKINA, Unavailable Unavailable [facility] VIRGINIE WESTLEY, VIRGINIE Unavailable Unavailable [facility] Unavailable Unavailable INC, [facility], Unavailable Unavailable [facility] HOSTA JERMAINE, HOSTA JERMAINE Unavailable Unavailable [facility]available [facility], [facility] ROSA JR DWI, ROSA Unavailable Unavailable JR DWI [facility] Unavailable Unavailable SERVICES, [facility] Unavailable [facility]available [facility], [facility] PETTEY JAM, PETTEY Unavailable Unavailable JAM PETTEY JAM, PETTEY Unavailable Unavailable [facility] Unavailable Unavailable [facility], [facility] RENUSCH AILEEN, RENUSCH Unavailable Unavailable AILEEN DUONG THO, Unavailable Unavailable DUONG THO ROEBKER JAM, ROEBKER Unavailable Unavailable HORTENSIA SNEED, FLORINDA Unavailable Unavailable CECILIA UGALDE Unavailable Unavailable [facility]OTINGEASarmadU LATASHA, Unavailable Unavailable SOTINGEANU LATASHA [facility] Unavailable Unavailable EMERGENCY ROOM PHYSICIAN [facility]YSIC[facility] Unavailable [facility]available [facility], [facility] ANDREW PRESLEY, ANDREW Unavailable Unavailable SAKINA SNEED, Unavailable Unavailable ROULA III JANAE FATIMA Unavailable Unavailable JANAE COLÓN Unavailable Unavailable Purpose Continuity of Care Document - 04-29-2009 through 2016 Problems Code Diagnosis DOS Provider Status [id number] CHONDROMALA 01-28-2016 [facility] RIGHT KNEE [id number] PAIN IN 01-28-2016 [facility] RIGHT KNEE PHYSICIANS GROUP [id number] SPRAIN 01-26-2016 ADVANCED UNSPECIFIED TECHNOLOGIE SITE RT S INC KNEE INITIAL ENCNTR K027 DENTAL ROOT 10-27-2015 [facility], [facility] K029 DENTAL 10-27-2015 [facility] UNSPECIFIED INC Z720 TOBACCO USE 10-27-2015 [facility] INC 5206 DISTURBANCE 02-11-2015 [facility] S IN [facility]OTH [facility] ERUPTION INC 01902 LOSS OF 02-11-2015 [facility] TEETH DUE PHYSICIANS, TO TRAUMA [facility] 09080 OPEN WOUND 02-11-2015 NE[facility] GUM WITHOUT PHYSICIANS, MENTION PLL COMPLICATIO N 920 CONTUSION 02-11-2015 [facility] SCALP AND INC NECK EXCEPT EYE 96256 INJURY OF 02-11-2015 NEO FACE AND PHYSICIANS, NECK OTHER PLLC AND UNSPECIFIED 7177 CHONDROMALA 12-05-2014 [facility] EMERGENC[facility] ROOM [place] [facility] [address] EFFUSION OF 12-05-2014 [facility] EMERGENC[facility] ROOM PHYSICIAN [facility] [address] PAIN IN 12-05-2014 [facility], ASSOCIATES LOWER [facility] OF [facility] 9597 INJURY 12-05-2014 ST OTHER&UNSPE [facility] CIFIED [facility] EMERGENCY ROOM PHYSICIAN LEG ST ANKLE&FOOT 9599 INJURY 12-05-2014 RAD[facility] OTHER AND ASSOCIATES UNSPECIFIED OF [facility] UNSPECIFIED SITE 23369 PAIN IN 11-24-2014 [facility], MEDICAL ANKLE AND IMAGING ASS FOOT 77376 SWELLING OF 11-24-2014 [facility] 8449 SPRAIN&STRA 11-24-2014 NEO IN OF PHYSICIANS, UNSPECIFIED PLLC SITE OF KNEE&LEG 22920 UNSPECIFIED 08-25-2014 [facility] SITE OF TECHNOLOGIE ANKLE S INC SPRAIN AND STRAIN 5699 UNSPECIFIED 01-29-2013 JEFF DISORDER GABBY OF INTESTINE 12199 OTHER 01-29-2013 JEFF SPECIFIED GABBY DISORDERS OF BLADDER 74245 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 LUTS 2768 HYPOPOTASSE 01-28-2013 JANAE MIRANDA KANDICE 5758 OTHER 01-28-2013 JANAE MIRANDA SPECIFIED DISORDER OF GALLBLADDER 45709 UNSPECIFIED 03-29-2012 [facility] PART OF [facility] CLOSED INC FRACTURE OF CLAVICLE 81265 CLOSED 03-29-2012 [place] FRACTURE OF MEDICAL SHAFT OF IMAGING ASS CLAVICLE V674 TREATMENT 03-29-2012 [facility]AL[facility] FRACTURE IMAGING ASS FOLLOW-UP EXAMINATION V5843 AFTERCARE 02-24-2012 [facility] FOLLOWING [facility] SURGERY INC INJURY AND TRAUMA 46664 SEROMA 02-16-2012 RUFUS BAZAN COMPLICATIN G A PROCEDURE NEC V672 CHEMOTHERAP 02-16-2012 YUKO Y FOLLOW-UP MEDICAL IMAGING ASS EXAMINATION V5419 AFTERCARE 02-09-2012 [facility] TRAUMATIC IMAGING ASS FRACTURE OTHER BONE V5409 OTH 01-25-2012 [facility] AFTERCARE MEDICAL INVOLVING IMAGING ASS INTERNAL FIXATION DEVICE 7933 NONSPECIFIC 01-14-2012 [facility] ABN FINDNG MEDICAL RAD&OTH IMAGING ASS EXAM BILARY TRCT 8054 CLOS FX 01-14-2012 [facility] LUMB MEDICAL VERTEBRA IMAGING ASS W/O MENTION SP CORD INJURY 46349 CLOSED 01-14-2012 [facility] FRACTURE OF MEDICAL THREE RIBS IMAGING ASS 99749 OTHER 12-19-2011 [facility] EMERGENCY PAIN SERVICES 62058 VOMITING 12-19-2011 [facility] 72438 CLOSED 12-19-2011 [facility] FRACTURE OF EMERGENCY RIB, SERVICES UNSPECIFIED 59363 CHEST PAIN 12-14-2011 RAD[facility]OLOG[facility] UNSPECIFIED ASSOCIATES OF [facility] 29459 CLOSED 12-14-2011 EMERGENCY FRACTURE OF CARE PHYS ONE RIB [facility] 9110 TRUNK 12-14-2011 EMERGENCY ABRASION/FR CARE PHYS ICTION BURN [facility] WITHOUT MENTION INF 9160 HIP THI 12-14-2011 EMERGENCY LEG&ANK CARE PHYS ABRASION/FR [facility] ICION BURN W/O INF 48222 PAIN IN 12-13-2011 [facility] PELVIC IMAGING ASS REGION AND THIGH 45040 DISPLCMT 12-13-2011 [facility] LUMBAR MEDICAL INTERVERT IMAGING ASS DISC W/O MYELOPATHY 7231 CERVICALGIA 12-13-2011 [facility] 7840 HEADACHE 12-13-2011 [facility] 15974 HEAD 12-13-2011 [facility] INJURY, MEDICAL UNSPECIFIED IMAGING ASS 59721 CLOSED 01-17-2011 ST FRACTURE [facility] METACARPAL PHYSICIANS BONE SITE UNSPECIFIED Medications Na ND Rx Da Fi Fi Am Da Di Ph RX Ph St me C No te ll ll ou ys ag ar # ys at rm s nt no ma ic us Or Da si cy ia de te s n re d 00 08 [phone] 0 15 3 CV [...] LL 05 IA 43 M 7 E Procedures Procedure DOS Code Location Performer Comment KNEE L1830 [facility] 6 TECHNOLOG IMMOBLIZE IES INC R CANVAS LONGTUDNL PREFAB THERAPEUT 89416 [facility] IC 6 [facility] PROPHYLAC INC INC TIC/DX INJECTION SUBQ/IM INJECTION J2405 [facility] 6 [facility] ONDANSETR INC INC ON HCL PER 1 MG UNCLASSIF J3490 [facility] IED DRUGS 6 [facility] INC INC MRI ANY 02490 RADIOLOGY ROEBKER JT LOWER 5 JAM EXTREM ASSOCIATE W/O S OF NOTH CONTRAST MATRL RADEX 73467 [facility] JEFF ANKLE 5 MEDICAL GABBY COMPLETE IMAGING MINIMUM 3 ASS VIEWS RADIOLOGI 26749 [facility] JEFF C 5 MEDICAL GABBY EXAMINATI IMAGING ON KNEE 3 ASS VIEWS RADEX 58817 [facility] BEINEKE ANKLE 5 MEDICAL LATASHA COMPLETE IMAGING MINIMUM 3 ASS VIEWS CRTCHS E0114 [facility]ED ADVANCED UNDARM 5 TECHNOLOG TECHNOLOG OTH THAN IES INC IES INC WOOD PAIR PAD TIP&[place] [address] JEFF JEFF ABDOMEN & 3 GABBY GABBY PEL[place] [address] JANAE MIRANDA ABDOMINAL 3 REAL TIME W/IMAGE LIMITED ECHO 34742 JANAE MIRANDA TRANSTHOR 3 C R-T 2D W/WO M-MODE REC F-UP/LMTD US CHEST 11883 JANAE MIRANDA REAL TIME 3 W/IMAGE DOCUMENTA TION RADEX 66248 [facility] CLAVICLE 2 [facility] COMPLETE INC INC RADEX 15288 ANA [facility] CLAVICLE 2 [facility] COMPLETE INC INC RADEX 45691 ANA [facility]RISTINA DE [facility] CLAVICLE 2 [facility] COMPLETE INC INC CUL BACT 26338 A[facility] XCPT 2 [facility] URINE INC INC BLOOD/STO OL AEROBIC ISOL SMR PRIM 84387 [facility] SRC 2 [facility] GRAM/GIEM INC INC SA STAIN BCT FUNGI/MARI L I&D 53958 PETTEY PETTEY HEMATOMA 2 JAM JAM SEROMA/FL UID COLLECTIO N RADEX 12929 YUKO JEFF CLAVICLE 2 [place]ICAL [place] [address] [facility] INFUSION 2 [facility] THERAPY INC INC PROPHYLAX IS/[place] [address] A[facility] INFUSION 2 [facility] THERAPY/P INC INC ROPHYLAXI S /DX 1ST TO 1 HR ANESTHESI 62926 [facility] 2 ANESTH SAKINA CLAVICLE OF [place] [address] A[facility] CLAVICULA 2 [facility] R INC INC FRACTURE INTERNAL FIXATION RADEX 30958 ANA CRISTINA DE [facility] CLAVICLE 2 [facility] COMPLETE INC INC RADIOLOGI 15630 YUKO AGUILAR C 2 MEDICAL GABBY EXAMINATI IMAGING ON CHEST ASS SINGLE VIEW FRONTAL FLUOROSCO 83376 YUKO AGUILAR PY SPX UP 2 MEDICAL GABBY TO 1 IMAGING HOUR ASS PHYS/QHP TIME FLUOROSCO 42066 [facility]NA [facility]RISTINA DE [facility] PY SPX >1 2 [facility]OS[facility] HOUR INC INC PHYS/QHP TIME THERAPEUT 13430 ANA CRISTINACECY DE LA PAZ IC 2 [facility] INJECTION INC INC IV PUSH EACH NEW DRUG ANCHOR/SC C1713 ANA [facility]INA [facility] REW 2 [facility] OPPOSING INC INC BN-TO-BN/ SOFT TISSUE-TO -BN RADEX 22263 YUKO MURILLOCHER CLAVICLE 2 [place] [address] YUKO AGUILAR ABDOMEN & 2 MEDICAL GABBY PELVIS IMAGING W/O ASS CONTRAST MATERIAL ECG 21157 A[facility] ROUTINE 2 [facility] ECG INC INC W/LEAST 12 LDS TRCG ONLY W/O I&R BASIC 63290 [facility] METABOLIC 2 [facility] PANEL INC INC CALCIUM TOTAL BLOOD 72073 [facility] COUNT 2 [facility] COMPLETE INC INC AUTO&AUTO DIFRNTL WBC ECG 10909 ROSA LEE JR ROUTINE 2 DWI DWI ECG W/LEAST 12 LDS I&R ONLY RADEX 71967 RADIOLOGY DARDINGER CLAVICLE 2 [facility] COMPLETE ASSOCIATE S OF [facility] RADIOLOGI 27237 RADIOLOGY DARDINGER C EXAM 2 SAKINA CHEST 2 ASSOCIATE VIEWS S OF [facility] FRONTAL&L ATERAL SHOULDER L3670 [facility] 2 TECHNOLOG TECHNOLOG ACROMIO/C IES INC IES INC LAVICULAR PREFAB RADEX 20501 [facility] JEFF RIBS 2 MEDICAL GABBY [place]ILATER[place]AGING [place] [address] [place] [address] [facility] JEFF CERVICAL 2 MEDICAL GABBY SPINE W/O IMAGING CONTRAST ASS MATERIAL CT LUMBAR 37747 [facility] JEFF SPINE 2 MEDICAL GABBY W/O IMAGING CONTRAST ASS MATERIAL RADIOLOGI 32282 [facility] JEFF C 2 MEDICAL GABBY EXAMINATI IMAGING ON PELVIS ASS 1/2 VIEWS RADEX 19021 [facility] SHOULDER 2 MEDICAL MEDICAL COMPLETE IMAGING IMAGING MINIM[place] [address] [place] [address] [facility] JE[facility] HEAD/BRAI 2 MEDICAL GABBY N W/O IMAGING CONTRAST ASS MATERIAL RADEX 04507 [facility] JEFF HAND 1 MEDICAL GABBY MINIMUM 3 IMAGING VIEWS ASS CLTX 81301 JOSH CELESTE METACARPA 1 EMERGENCY III NEDRA L FX W/O SERVICES MANIPULAT ION EACH BONE Encounters Encounter Start End Date Code Location Performer Type Date OFFICE 16781 [facility] PETTEMinh OUTPATIEN 6 6 PHYSICIAN JAM T NEW 30 S GROUP MINUTES EMERGENCY 71469 NEO LOVELACE 6 6 PHYSICIAN AILEEN [facility] T VISIT MODERATE SEVERITY HOSPITAL ANA CRISTINA - 6 6 [facility]EN [facility] EMERGENCY 30846 ANA CRISTINA 6 6 [facility] T VISIT MODERATE SEVERITY EMERGENCY 05041 NEO MACKAY 6 6 PHYSICIAN U LATASHA [facility], [facility] T VISIT HIGH/URGE NT SEVERITY EMERGENCY 73418 ANA CRISTINA 5 5 [facility] VISIT LOW/MODER SEVERITY EMERGENCY 80330 NEO MCAKAY 5 5 PHYSICIAN U LATASHA [facility], [facility] T VISIT MODERATE SEVERITY HOSPITAL ANA CRISTINA - 5 5 [facility] OUTPATIEN [facility] - 5 5 [facility] 03[address] [facility] 5 5 BET[facility] BRI T VISIT 15 PHYSICIAN MINUTES S EMERGENCY 84901 NEO RACHEL 5 5 PHYSICIAN [place] [facility], [facility] T VISIT HIGH/URGE NT SEVERITY EMERGENCY 38965 JANAE MIRANDA DEPT 3 3 VISIT HIGH SEVERITY& [facility] ANA CRISTINA - 2 2 [facility] OUTPATIEN [facility] ANA CRISTINA - 2 2 [facility]PATIEN [facility] ANA CRISTINA - 2 2 [facility]PATI[facility] ANA CRISTINA - 2 2 [facility] ANA CRISTINA - 2 2 [facility] ANA CRISTINA - 2 2 [facility] ANA C[facility] - 2 2 [facility] OUTPATIEN [facility] OFFICE 56376 [facility] 2 2 HORTENSIA BAZAN T NEW 30 MINUTES EMERGENCY 01623 JOSH NEELY DEPT 2 2 EMERGENCY NEDRA VISIT SERVICES HIGH SEVERITY& THREAT FUN EMERGENCY 28160 EMERGENCY [facility] 2 2 CARE N THO DEPARTMEN PHYS T VISIT [facility] HIGH/URGE NT SEVERITY OFFICE 46903 [facility] OUTPATIEN 1 1 BET[facility] MANRIQUE T NEW 30 MINUTES PHYSICIAN S EMERGENCY 14848 JOSH CELESTE 1 1 EMERGENCY III NEDRA DEPARTMEN SERVICES T VISIT HIGH/URGE NT SEVERITY HOSPITAL ANA CRISTINA - 1 1 [facility] OUTPATIEN INC T EMERGENCY 09200 ANA CRISTINA 1 1 [facility] DEPARTMEN INC T VISIT LOW/MODER SEVERITY HOSPITAL ANA CRISTINA - 9 9 [facility] OUTPATIEN INC T
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
--- OUTSIDE RECORDS SUMMARY | 2017-01-24 22:17 | External Medical Summary Rpt ---
[...] tion in tion in 2:20 PM BATTERY Moiess source source source source 04, data data [...]
--- OUTSIDE RECORDS SUMMARY | 2017-01-24 22:17 | External Medical Summary Rpt ---
Demographics Preferred Language Yoruba Marital Status Unknown Anabaptism Affiliation Unknown Race Unknown Ethnic Group Unknown Author Author RYAN Address Unknown Phone Immunization No patient found.
--- OUTSIDE RECORDS SUMMARY | 2017-01-24 22:17 | External Medical Summary Rpt ---
Demographics Preferred Language Lithuanian Marital Status Unknown Gnosticism Affiliation Unknown Race Unknown Ethnic Group Unknown Author Author RYAN Address Unknown Phone Immunization No patient found.
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
== END 2017-01-24 22:15 | disposition home or self-care (01) ==
LOC: ER 21:05
DX: H10.32 Unspecified acute conjunctivitis, left eye (principal); Z72.0 Tobacco use

== ENCOUNTER 2017-02-07 02:09 | Emergency (ER) | payer MEDICAID ==
[~2017-02-07] VITALS: Ht 180.3 cm; Wt 83.9 kg
[~2017-02-07 02:09] MED LIST changes: +KEFLEX 500MG.500 MG PO
--- NOTE | 2017-02-07 02:33 | Emergency Room Report ---
History of Present Illness Time Seen by 0201 Presenting Problem in Triage Pt arrived:Walked Presenting Problem:C/O SOB AND COUGH X 1 WEEKS. UNABLE TO LAY DOWN NON PRODUCTIVE COUGH Onset of symptoms date/time:/ or onset unknown for:MEDICAL HX UNKNOWN Treatment Prior to Arrival: [facility] Provided by: Sepsis Risk Assessment: Temp: 98.4 B/P: 133/90 MAP: 104 Pulse: 99 Resp: 24 Recent fever? N Clinical Suspician of Infection? Y Mental Status: 1 - Regular (Normal Baseline) Sepsis Risk:Severe Sepsis Risk Have you (or family members/close friends) recently traveled outside the [place]? N If Yes, where/when: Have you had exposure to infectious disease within the past month? N TB? Other? Specify: Source patient, RN notes reviewed, family, old records Exam Limitations no limitations Comment pt with cough worse with lying down nonprod w/o hemoptysis and has progressed over the last week- he does smoke - Cardiac Chest Pain Chest pain indicative of cardiac No Timing/Duration this evening ALLERGIES Uncoded Allergies: TETNUS SHOT (02/07/17) Home Medications Active Scripts CEPHALEXIN (Keflex 500MG Capsule) 500 MG PO Q8H #21 CAP Prov: 01/24/17 Reported Medications No Home Medications (NO HOME MEDICATIONS) 1 EACH XX ONCE History Medical History General CAD? No Angina: No NM: No Hypertension? Yes Hyperlipidemia? No CHF? No DVT? No PE? No COPD? No Asthma? Yes Anemia? No GERD? No Gastric ulcers? No GI Bleed? No Hernia? No Thyroid Problems? No Hypothyroidism? No CVA? No Seizures? No Diabetes? No Renal Insuffiency? No End Stage Renal Disease? No UTI? No Stones? No BPH? No GB Disease: No Nephritic Syndrome? No Asplenia? No Hepatitis? No Sickle Cell Disease? No Arthritis? No Migraines? No Cataracts? No Glaucoma? No MRSA? No HIV? No TB? No Anxiety? No Depression? No Cancer? No Immunization Hx DT/Tetanus REFUSES Flu [id number] Pneumonia NEVER Surgical Hx Previous Surgery?Y ORAL SURGERY RIGHT SHOULDER Family History Family Hx Diabetes Yes CAD Yes Hypertension Yes Hyperlipidemia No Cancer No TB No Social History Smoking Hx Smoker: Current Every Day Smoker Tobacco: Yes Type Cigarettes Packs/day < 1 Pack Alcohol Alcohol: No Drugs none Review of Systems All Other Systems Reviewed and Negative Constitutional denies fever Eyes denies drainage ENT denies: ear pain, epistaxis, throat pain. Respiratory see HPI, cough, shortness of breath, wheezing Cardiovascular denies chest pain, denies syncope Gastrointestinal denies abdominal pain, denies diarrhea, denies vomiting Genitourinary denies: dysuria, frequency, hesitancy, hematuria. Musculoskeletal denies back pain, denies joint pain, denies joint swelling, denies neck pain Skin denies rash Psychiatric/Neurological denies headache, denies seizure Physical Exam Vital Signs Vital Signs Date Time Temp Pulse Resp B/P Pulse O2 O2 Flow FiO2 Ox Delivery Rate 02/07 0332 98.4 93 20 126/78 98 02/07 0313 20 02/07 0247 98 24 133/90 97 02/07 0213 98.4 99 24 133/90 97 - WBC >12,000 or <4,000 or 10% bands? 2 or more SIRS Criteria Met? B/P:126/78 MAP:104 Creatinine >2.0? UA output<0.5ml/kg/hr for 2 hrs? Platelet count >100,000? Lactate >2.0mmol/1? INR >1.2 or PTT > than 60 sec? Evidence of Organ Dysfunction? Provider documented clinical suspician of infection? Y Sepsis Criteria Count: 2 Sepsis Risk: Severe Sepsis Risk General Appearance no apparent distress Eye Exam - bilateral eye PERRL, bilateral eye EOMI Comment chronic changes lt eye Ear, Nose, Throat normal ENT inspection Neck supple Respiratory Status No: respiratory distress. Lung Sounds bilateral: rhonchi. Cardiovascular regular rate/rhythm, no gallop, no JVD, no murmur, no rub Peripheral Pulses Pulses normal Yes Gastrointestinal soft Extremities normal inspection Strength 4 Upper Ext (L), 4 Upper Ext (R), 4 Lower Ext (L), 4 Lower Ext (R) Neurologic alert, traveling operator II-XII nml as tested, no motor/sensory deficits Reflexes Reflexes normal No Mental status normal mood/affect Skin intact Medical Decision Making LABS/Meds/Orders Pt receiving controlled substance in ED? No Results/Orders Laboratory Tests 02/07/17 0246: Chlamy pneum (TEM-PCR) Pending, Adenovirus (PCR) Pending, B. pertussis DNA (PCR) Pending, Coronavirus OC43 (PCR) Pending, Coronavirus HKU1 (PCR) Pending, Coronavirus 229E (PCR) Pending, Coronavirus NL63 (PCR) Pending, Human Metapneumovir PCR Pending, Influenza A (H1) PCR Pending, Influ A (H1N1/09) PCR Pending, Influenza A (H3) PCR Pending, Influenza Type A (PCR) Pending, Influenza Type B (PCR) Pending, M. pneumoniae (PCR) Pending, Parainfluenza 1 (PCR) Pending , Parainfluenza 2 (PCR) Pending, Parainfluenza 3 (PCR) Pending, Parainfluenza 4 (PCR) Pending, RSV (PCR) Pending, Entero/Rhino (PCR) Pending 02/07/17 0230: Lactic Acid 1.9 02/07/17 0230: Creatine Kinase 88, CK-MB (CK-2) Rel Index 0.6, CK and CKMB Interp < 0.5, Troponin I < 0.02 02/07/17 0230: Sodium 137, Potassium 3.3 L, Chloride 98, Carbon Dioxide 31, BUN 6 L, Creatinine 1.0, Estimated Creat Clear 115, Estimated GFR (MDRD) 82, Glucose 108 H, Calcium 8.7, Total Bilirubin 0.3, AST 23, ALT 22, Alkaline Phosphatase 91, Total Protein 7.6, Albumin 3.3 L, Globulin 4.3 H, Albumin/Globulin Ratio 0.8 L, WBC 6.0, RBC 4.63, Hgb 14.8, Hct 43.4, MCV 93.8, RDW 14.7, Plt Count 215, MPV 7.7, Gran % 53.4, Gran # 3.2, Lymphocytes % 32.2, Monocytes % 9.8 H, Eosinophils % 3.9, Basophils % 0.6, Lymphocytes # 1.9, Monocytes # 0.6, Eosinophils # 0.2, Basophils # 0.0, PUBS MCHC 34.0, MCH 31.9 H Current Medication Orders Sig/Vi Start time Last Medication Dose Route Stop Time Status Admin Ceftriaxone Sodium 1 GM ONCE ONE 02/07 315 UT 02/07 Sodium Chloride 50 ML IV 02/07 Ketorolac 30 MG ONCE ONE 02/07 315 DC 02/07 Tromethamine IV 02/07 Methylprednisolone 125 MG ONCE ONE 02/07 315 UT 02/07 Sodium Succinate IV 02/07 031 0313 Ceftriaxone Sodium 0 .STK-MED ONE 02/07 031 DC IV Methylprednisolone 0 .STK-MED ONE 02/07 310 DC Sodium Succinate .ROUTE Sodium Chloride 50 ML .STK-MED ONE 02/07 031 DC IV Ketorolac 0 .STK-MED ONE 02/07 0309 DC Tromethamine .ROUTE Albuterol 2.5 MG ONCE ONE 02/07 0245 DC 02/07 INH 02/07 246 0247 Albuterol 2 PUFFS ONCE ONE 02/07 0245 DC 02/07 IH 02/07 024 0248 Albuterol 0 .STK-MED ONE 02/07 024 DC INH Miscellaneous 1 UNIT ONCE ONE 02/07 245 DC XX 02/07 024 Miscellaneous 0 .STK-MED ONE 02/07 245 DC XX Albuterol 0 .STK-MED ONE 02/07 0244 DC IH Sodium Chloride 10 ML PRN PRN 02/07 0230 AC IV 02/08 0220 Sodium Chloride 1,000 ML .Q1H1M 02/07 023 DC 02/07 IV 02/07 033 0223 Sodium Chloride 10 ML PRN PRN 02/07 0230 AC IV 02/08 0220 Sodium Chloride 1,000 ML .STK-MED ONE 02/07 226 DC IV Orders Procedure Date/time Status CARDIAC ENZYMES 02/07 033 Complete UPPER RESPIRATORY PANEL, PCR 02/07 024 Active RT REQUEST ALBUTEROL INHALER 02/07 237 Active RT REQUEST ALBUTEROL NEB 02/07 023 Active CHEST(2 VIEWS-NOT PORTABLE) 02/07 222 Active IV SALINE LOCK 02/07 222 Active CULTURE, BLOOD 02/07 222 Active LACTIC ACID 02/07 222 Complete CBC WITH AUTO DIFF 02/07 222 Complete CHEM 12 PROFILE 02/07 222 Complete XRAY/CT/US XRAY/CT/US XRAY chest XR interpretation by reviewed by me Xray Results normal/NAD Departure Departure Time of Disposition 0338 Disposition DC Home or Self Care(routine) Clinical Impression Primary Impression: Bronchitis Secondary Impressions: Reactive airway disease that is not asthma Condition STABLE Referrals NIXON BROOKS (Family) Patient Instructions DI for Cough -- Adult Additional Instructions use meds and see pcp for follow up and please stop smoking Discharge Counseling Counseled pt/family regarding diagnosis, test results, medications/RX, follow up needs Prescriptions Current Visit Scripts Azithromycin (Zithromycin (Z-CHRISTIANO) 250MG Tab) 250 MG PO DAILY #6 TAB TAKE TWO (2) TABLETS ON DAY 1, THEN ONE (1) TABLET DAY #2 THRU #5 Prednisone (Prednisone 20MG) 20 MG PO BID #10 TAB BENZONATATE (Benzonatate) 100 MG PO TID #15 CAP ED Critical Care Critical Care No at 0402
[2017-02-07 02:45] LABS: HEMOGLOBIN 14.8 g/dL (14.1-18.0); LYMPH # 1.9 K/mm3 (0.7-4.5); LYMPH % 32.2 % (10-50)
[2017-02-07 02:56] LABS: CORONAVIRUS 229E NOT DETECTED (NOT DETECTE); CORONAVIRUS HKU 1 NOT DETECTED (NOT DETECTE); CORONAVIRUS NL63 NOT DETECTED (NOT DETECTE); CORONAVIRUS OC43 NOT DETECTED (NOT DETECTE)
[2017-02-07] MEDS ORDERED: ZITHROMAX Z PA250 MG PO (04:00)
[2017-02-07] MEDS ORDERED: PREDNISONE 20MG20 MG PO (04:00)
[2017-02-07] MEDS ORDERED: TESSALON PERLE100 MG PO (04:00)
[2017-02-07 04:10] VITALS: BP 126/78
[2017-02-07 04:23] LABS: RHINOVIRUS/ENTEROVIRUS DETECTED (NOT DETECTE)
--- NOTE | 2017-02-07 05:45 | RADIOLOGY REPORT PS360 ---
CHEST(2 VIEWS-NOT PORTABLE) HISTORY: C/O SOB AND COUGH ORDERING PHYSICIAN: Katherin Tan MD PATIENT AGE: 41 years COMPARISON: None available FINDINGS: The cardiomediastinal silhouette and pulmonary vascularity are within normal limits. The lungs are clear without infiltrates, suspicious nodules, or pleural effusions. No acute bony abnormalities. There is an old right clavicular fracture with a horizontal screw within the mid and distal clavicle stabilizing the old fracture. IMPRESSION: No acute finding
== END 2017-02-07 04:10 | disposition home or self-care (01) ==
LOC: ER 02:09
PROVIDERS: Emergency Medicine
DX: J20.9 Acute bronchitis, unspecified (principal); I10 Essential (primary) hypertension; Z72.0 Tobacco use